=== PATIENT | female | born 1970 | race Caucasian/White ===

== ENCOUNTER 2018-03-03 18:33 | Emergency (ER) | payer MEDICAID ==
[2018-03-03 22:28] LABS: ADD MAN DIFF? NO
[2018-03-03] MEDS: SOD CHLORIDE 0.9% 1,000 ML IV (22:28)
[2018-03-03] MEDS: KETOROLAC 30 MG INJ IV (22:29)
[2018-03-03 22:30] LABS: WHITE BLOOD COUNT 11.4 10^3/ul (4.8-10.8)
[2018-03-03 22:30] LABS: BASOPHIL # 0.1 10^3/ul (0.0-0.1); BASOPHILS % 0.5 % (0.0-2.0); EOSINOPHILS # 0.1 10^3/ul (0.0-0.5); EOSINOPHILS % 1.1 % (0.0-7.0); HEMATOCRIT 39.5 % (37.0-47.0); HEMOGLOBIN 12.4 g/dl (12.0-16.0); LYMPHOCYTES # 3.8 10^3/ul (0.8-2.9); LYMPHOCYTES % 33.5 % (15.0-51.0); MEAN CORPUSCULAR HEMOGLOBIN 26.1 pg (29.0-33.0); MEAN CORPUSCULAR HGB CONC 31.4 g/dl (32.0-37.0); MEAN CORPUSCULAR VOLUME 83.2 fl (82.0-101.0); MEAN PLATELET VOLUME 10.2 fl (7.4-10.4); MONOCYTE # 0.6 10^3/ul (0.3-0.9); MONOCYTES % 4.8 % (0.0-11.0); NEUTROPHIL # 6.8 10^3/ul (1.6-7.5); NEUTROPHILS % 59.7 % (39.0-77.0); PLATELET COUNT 313 10^3/UL (140-415); RED BLOOD COUNT 4.75 10^6/ul (4.20-5.40); RED CELL DISTRIBUTION WIDTH 13.7 % (11.5-14.5)
[2018-03-03 22:47] LABS: ALANINE AMINOTRANSFERASE 15 IU/L (13-69); ALBUMIN 4.5 g/dl (3.3-4.9); ALBUMIN/GLOBULIN RATIO 1.12; ALKALINE PHOSPHATASE 120 IU/L (42-121); ASPARTATE AMINO TRANSFERASE 20 IU/L (15-46); BILIRUBIN,INDIRECT 0.6 mg/dl (0-1.1); BILIRUBIN,TOTAL 0.6 mg/dl (0.2-1.3); BLOOD UREA NITROGEN 8 mg/dl (7-20); CALCIUM 9.8 mg/dl (8.4-10.2); CARBON DIOXIDE 25 mmol/L (21-31); CREATININE 0.55 mg/dl (0.44-1.00); Estimated GFR > 60 mL/min (>60); GLUCOSE 100 mg/dl (70-220); LIPASE 63 U/L (23-300); POTASSIUM 4.5 mmol/L (3.5-5.1); SODIUM 140 mmol/L (135-144); TOTAL PROTEIN 8.5 g/dl (6.1-8.1)
[2018-03-03 22:53] LABS: ANION GAP 12 (5-13); CHLORIDE 103 mmol/L (97-110)
[2018-03-03 22:56] LABS: ADD UMIC NO; UR ASCORBIC ACID NEGATIVE (NEGATIVE); UR BACTERIA FEW /HPF (NONE SEEN); UR BILIRUBIN (Dip) NEGATIVE (NEGATIVE); UR BLOOD (Dip) NEGATIVE (NEGATIVE); UR CLARITY SLIGHTLY CLOUDY (CLEAR); UR COLOR YELLOW (YELLOW); UR GLUCOSE (Dip) NEGATIVE (NEGATIVE); UR KETONES (Dip) NEGATIVE (NEGATIVE); UR LEUKOCYTE ESTERASE (Dip) NEGATIVE Leu/ul (NEGATIVE); UR NITRITE (Dip) NEGATIVE (NEGATIVE); UR RBC 2 /HPF (0-5); UR SPECIFIC GRAVITY (Dip) 1.013 (1.003-1.030); UR SQUAMOUS EPITHELIAL CELL MODERATE /HPF (FEW); UR TOTAL PROTEIN (Dip) NEGATIVE (NEGATIVE); UR UROBILINOGEN (Dip) NEGATIVE (NEGATIVE); UR WBC 1 /HPF (0-5)
== END 2018-03-03 23:35 | disposition home or self-care (01) ==
LOC: E/R 23:35
DX: N39.0 Urinary tract infection, site not specified (principal); Z85.3 Personal history of malignant neoplasm of breast
CPT/HCPCS: 36415; 80053; 81001; 81003; 81025; 83690; 85025; 96374; 99284-25

== ENCOUNTER 2018-04-15 07:14 | Day surgery (SDC) | payer MEDICAID ==
[2018-04-15] MEDS: SOD CHLORIDE 0.9% 1,000 ML IV (07:00)
[2018-04-15] MEDS ORDERED: FENTAnyl 50 MCG/ML VIAL (09:59)
[2018-04-15] MEDS ORDERED: METOCLOPRAMIDE 10 MG INJ IV (10:00)
[2018-04-15] MEDS ORDERED: FENTAnyl 50 MCG/ML VIAL IV ×3 (10:00)
[2018-04-15] MEDS ORDERED: MEPERIDINE 25 MG INJ IV (10:00)
[2018-04-15] MEDS ORDERED: DIPHENHYDRAMINE 50 MG INJ IV (10:00)
[2018-04-15] MEDS ORDERED: ALBUTEROL 0.083% (NEB) 2.5 MG/3 ML AMP HHN (10:00)
[2018-04-15] MEDS ORDERED: HYDROmorphONE 1 MG/5 ML IV SYRINGE IV ×2 (10:00)
[2018-04-15] MEDS: ISOSULFAN BLUE 1% 5 ML INJ SC (10:10)
[2018-04-15] MEDS ORDERED: ROCURONIUM 50 MG INJ (10:14)
[2018-04-15] MEDS ORDERED: NEOSTIGMINE 3 MG/3 ML SYRINGE (10:14)
[2018-04-15] MEDS ORDERED: SUCCINYLCHOLINE CHLORIDE 100 MG/5 ML SYG IV (10:14)
[2018-04-15] MEDS ORDERED: PROPOFOL 20 ML (10:14)
[2018-04-15] MEDS ORDERED: LIDOCAINE 100 MG SYRINGE (10:14)
[2018-04-15] MEDS ORDERED: GLYCOPYRROLATE 0.4 MG INJ (10:14)
[2018-04-15] MEDS ORDERED: CEFAZOLIN 1 GM INJ (10:14)
[2018-04-15] MEDS: CEFAZOLIN 2 GM/50 ML (PMX) 50 ML IVPB (10:44)
[2018-04-15] MEDS: ONDANSETRON 4 MG INJ IV (12:14)
[2018-04-15] MEDS: HYDROmorphONE 1 MG/5 ML IV SYRINGE IV (12:14)
[2018-04-15] MEDS: HYDROCODONE/APAP (7.5/325) TAB PO (13:25)
== END 2018-04-15 14:16 | disposition home or self-care (01) ==
LOC: SDS 07:14
DX: C50.912 Malignant neoplasm of unspecified site of left female breast (principal); D36.0 Benign neoplasm of lymph nodes
CPT/HCPCS: 19301; 88307; 88331

== ENCOUNTER 2018-05-31 08:12 | Day surgery (SDC) | payer MEDICAID ==
[2018-05-31] MEDS ORDERED: CEFAZOLIN 1 GM/50 ML (PMX) 50 ML IVPB (08:30)
[2018-05-31] MEDS ORDERED: SOD CHLORIDE 0.9% 1,000 ML IV (08:30)
[2018-05-31] MEDS ORDERED: POLYMYXIN/BACITRACIN 1L IRRIG IRR (08:30)
[2018-05-31] MEDS ORDERED: HEPARIN 1000 UNITS/ML 10 ML INJ (10:20)
[2018-05-31] MEDS ORDERED: MIDAZOLAM 1 MG/ML 2 ML INJ (10:20)
[2018-05-31] MEDS ORDERED: IODIXANOL LOCM 50 ML BTL (10:20)
[2018-05-31] MEDS ORDERED: FENTAnyl 50 MCG/ML VIAL (10:20)
[2018-05-31] MEDS ORDERED: LIDOCAINE 1%/EPI (1:100,000) (MDV) 20 ML (10:21)
[2018-05-31] MEDS: HYDROCODONE/APAP (5/325) TAB PO (13:54)
== END 2018-05-31 13:52 | disposition home or self-care (01) ==
LOC: SDS 08:12
DX: C50.912 Malignant neoplasm of unspecified site of left female breast (principal)
CPT/HCPCS: 36561; 84703